=== PATIENT | female | born 2000 | race Caucasian/White ===

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

== ENCOUNTER 2020-03-30 18:03 | Emergency (ER) | payer OTHER ==
[2020-03-30 18:15] VITALS: BP 120/68
--- NOTE | 2020-03-30 21:21 | ER Document Report ---
ED Medical Screen (RME) - General Chief Complaint: Chest Pain Stated Complaint: DIZZINESS Time Seen by Provider: 03/30/20 21:08 TRAVEL OUTSIDE OF THE [place] IN LAST 30 DAYS: No - HPI Notes: 03/30/20 21:15 19-year-old female with a long history of anorexia since age 14 presents to the emergency room by recommendation of her primary care doctor for weakness, lightheadedness, chest pain and slight confusion related to the fact that she will needs about 5200 [address] a day. Patient states that she is relapsing with her anorexia. Patient reports her chest pain started today, reports pain is constant and achy. Has not tried any [id number] medications. Patient states she drinks about 75 ounces of water a day. Denies any fevers or chills. Reports her last menstrual cycle was a week ago. Non-smoker. Her primary care provider, Dr. Gusman, wanted her to get some basic labs and possibly some IV fluids 03/30/20 21:20 I have greeted and performed a rapid initial assessment of this patient. A comprehensive ED assessment and evaluation of the patient, analysis of test results and completion of the medical decision making process will be conducted by additional ED providers. PHYSICAL EXAMINATION: GENERAL: Well-appearing, well-nourished and in no acute distress. pt in wheelchair. HEAD: Atraumatic, normocephalic. EYES: Pupils equal round extraocular movements intact, conjunctiva are normal. NECK: Normal range of motion CV: s1, s2 regular LUNGS: No respiratory distress - Related Data Allergies/Adverse Reactions: morphine Allergy (Verified 10/21/19 21:27) Past Medical History - Social History Family history: None Past Surgical History: Reports: Hx Cholecystectomy - Immunizations Immunizations up to date: Yes Physical Exam - Vital signs Vitals: Temp Pulse Resp BP Pulse Ox 98.6 F 107 H 18 120/68 98 03/30/20 18:13 03/30/20 18:13 03/30/20 18:13 03/30/20 18:13 03/30/20 18:13 Course - Vital Signs Vital signs: Temp Pulse Resp BP Pulse Ox 98.6 F 107 H 18 120/68 98 03/30/20 18:13 03/30/20 18:13 03/30/20 18:13 03/30/20 18:13 03/30/20 18:13
[2020-03-30 22:07] LABS: APPEARANCE,URINE SLIGHTLY-CLOUDY; BILIRUBIN,URINE NEGATIVE (NEGATIVE); COLOR,URINE YELLOW; GLUCOSE, URINE NEGATIVE (NEGATIVE); KETONES,URINE 80 mg/dL (NEGATIVE); LEUKOCYTE ESTERASE,URINE NEGATIVE (NEGATIVE); NITRITE,URINE NEGATIVE (NEGATIVE); PROTEIN,URINE 30 mg/dL (NEGATIVE); URINE SPECIFIC GRAVITY 1.023; UROBILINOGEN,URINE NEGATIVE mg/dL (<2.0)
--- NOTE | 2020-03-30 22:22 | RADIOLOGY REPORT (SQ) ---
CHEST X-RAY 2 view on 03/30/2020 at 9:56 PM CLINICAL INDICATION: Chest pain, dizziness COMPARISON: 11/28/2019 FINDINGS: The lungs are clear. Cardiac, hilar and mediastinal contours are within normal limits. Pulmonary vascularity is within normal limits. No bony abnormality is noted. IMPRESSION: No active disease.
[2020-03-30 22:25] LABS: ABSOLUTE EOSINOPHILS # (AUTO) 0.1 10^3/uL (0.0-0.6); ABSOLUTE LYMPHOCYTES (AUTO) 2.7 10^3/uL (0.5-4.7); ABSOLUTE MONOCYTES (AUTO) 0.5 10^3/uL (0.1-1.4); ABSOLUTE NEUT (AUTO) 6.7 10^3/uL (1.7-8.2); BASOPHILS % (AUTO) 0.4 % (0-2); HEMATOCRIT 41.3 % (36.0-47.0); HEMOGLOBIN 14.1 g/dL (12.0-15.5); LYMPHOCYTES % (AUTO) 26.9 % (13-45); MEAN CORPUSCULAR HEMOGLOBIN 28.6 pg (27.0-33.4); MEAN CORPUSCULAR HGB CONC 34.1 g/dL (32.0-36.0); MEAN CORPUSCULAR VOLUME 84 fl (80-97); MONOCYTES % (AUTO) 5.4 % (3-13); PLATELET COUNT 291 10^3/uL (150-450); RED BLOOD COUNT 4.92 10^6/uL (3.72-5.28); RED CELL DISTRIBUTION WIDTH 12.6 % (11.5-14.0); SEGMENTED NEUTROPHILS % (AUTO) 66.3 % (42-78); TOTAL CELLS COUNTED % (AUTO) 100 %; WHITE BLOOD COUNT 10.1 10^3/uL (4.0-10.5)
[2020-03-30 22:48] LABS: ALBUMIN 5.2 g/dL (3.7-5.6); ALKALINE PHOSPHATASE 102 U/L (50-135); ANION GAP 14 (5-19); ASPARTATE AMINO TRANSFERASE 19 U/L (5-30); BILIRUBIN,TOTAL 0.5 mg/dL (0.2-1.3); BLOOD UREA NITROGEN 8 mg/dL (7-20); CARBON DIOXIDE 19 mmol/L (22-30); CHLORIDE 105 mmol/L (98-107); GLUCOSE 74 mg/dL (75-110); POTASSIUM 4.2 mmol/L (3.6-5.0); TOTAL PROTEIN 8.5 g/dL (6.3-8.2)
--- NOTE | 2020-03-31 00:21 | EKG REPORT ---
SEVERITY:- ABNORMAL ECG - SINUS TACHYCARDIA LEFT ATRIAL ABNORMALITY NONSPECIFIC T ABNORMALITIES, DIFFUSE LEADS : Confirmed by: Jean Angela MD 31-Mar-2020 00:20:53
== END 2020-03-31 00:40 | disposition left against medical advice (07) ==
LOC: ER 18:03
DX: R07.9 Chest pain, unspecified (principal); R42 Dizziness and giddiness; R53.1 Weakness; R41.0 Disorientation, unspecified; Z53.20 Procedure and treatment not carried out because of patient's decision for unspecified reasons
CPT/HCPCS: 36415; 71046; 80053; 81001; 81025; 85025; 93005; 93010; 99281

== ENCOUNTER 2020-04-09 20:40 | Emergency (ER) | payer OTHER ==
--- NOTE | 2020-04-09 21:02 | ER Document Report ---
ED Medical Screen (RME) - General Chief Complaint: Suicidal Ideation Stated Complaint: SUICIDAL IDEATION Time Seen by Provider: 04/09/20 20:51 Mode of Arrival: Ambulatory Information source: Patient Notes: Patient is a 19-year-old female with history of ADHD, major depression and anxiety presenting to the emergency department with complaints of suicidal thoughts with a plan. Patient reports she has been having unstable moods, crying and having outburst for no reason. She also reports that she started cutting herself today. She states she has cut davis to her bilateral arms, hands, legs and abdomen. She does have a history of cutting but states she has not cut for at least 2 years. She has a history of inpatient hospitalization about 5 years ago. She states that she knows if she is left alone she will kill herself. She is accompanied by her her fianc who she lives with. Patient is calm, cooperative, has a very flat affect. IVC petition initiated. I have greeted and performed a rapid initial assessment of this patient. A comprehensive ED assessment and evaluation of the patient, analysis of test results and completion of the medical decision making process will be conducted by additional ED providers. I have specifically instructed the patient or family members with the patient to immediately return to any nursing staff should anything change in the patient's condition or with their chief complaint. TRAVEL OUTSIDE OF THE [place] IN LAST 30 DAYS: No - Related Data Allergies/Adverse Reactions: morphine Allergy (Verified 10/21/19 21:27) Past Medical History - Social History Family history: None Past Surgical History: Reports: Hx Cholecystectomy - Immunizations Immunizations up to date: Yes
--- NOTE | 2020-04-09 21:56 | ER Document Report ---
ED Psych Disorder / Suicide - General Chief Complaint: Psych Problem Stated Complaint: SUICIDAL IDEATION Time Seen by Provider: 04/09/20 20:51 Mode of Arrival: Ambulatory Information source: Patient Notes: Patient is a 19-year-old female with history of ADHD, major depression and anxiety presenting to the emergency department with complaints of suicidal thoughts with a plan. Patient reports she has been having unstable moods, crying and having outburst for no reason. She also reports that she started cutting herself today. She states she has cut davis to her bilateral arms, hands, legs and abdomen. She does have a history of cutting but states she has not cut for at least 2 years. She has a history of inpatient hospitalization about 5 years ago. She states that she knows if she is left alone she will kill herself. She is accompanied by her her fianc who she lives with. Patient is calm, cooperative, has a very flat affect. TRAVEL OUTSIDE OF THE [place] IN LAST 30 DAYS: No - Related Data Allergies/Adverse Reactions: morphine Allergy (Verified 04/09/20 21:05) Home Medications: zoloft, vyvanse, ativan Past Medical History - General Information source: Patient - Social History Smoking Status: Former Smoker Chew tobacco use (# tins/day): No Frequency of alcohol use: Occasional Drug Abuse: Marijuana Family History: Reviewed & Not Pertinent Psychiatric Medical History: Reports: Hx Anxiety, Hx Attention Deficit Hyperactivity Disorder, Hx Depression Past Surgical History: Reports: Hx Cholecystectomy, Hx Oral Surgery - Immunizations Immunizations up to date: Yes Review of Systems - Review of Systems Neurological/Psychological: Depression, Anxiety, Suicidal ideation -: Yes All other systems reviewed and negative Physical Exam - Vital signs Vitals: Temp Pulse BP Pulse Ox 98.4 F 122 H 127/76 H 100 04/09/20 22:16 04/09/20 22:16 04/09/20 22:16 04/09/20 22:16 - Notes Notes: PHYSICAL EXAMINATION: GENERAL: Well-appearing, well-nourished and in no acute distress. HEAD: Atraumatic, normocephalic. EYES: Pupils equal round and reactive to light, extraocular movements intact, conjunctiva are normal. ENT: Nares patent, oropharynx clear without exudates. Moist mucous membranes. NECK: Normal range of motion, supple without lymphadenopathy LUNGS: Breath sounds clear to auscultation bilaterally and equal. No wheezes rales or rhonchi. HEART: Regular rate and rhythm without murmurs ABDOMEN: Soft, nontender, nondistended abdomen. No guarding, no rebound. No masses appreciated. Female : deferred Musculoskeletal: Normal range of motion, no pitting or edema. No cyanosis. NEUROLOGICAL: Cranial nerves grossly intact. Normal speech, normal gait. Normal sensory, motor exams PSYCH: Flat affect, tearful. SKIN: Superficial lacerations to bilateral arms, hands, lower extremities and abdomen. None of which need suturing. Course - Re-evaluation Re-evalutation: 04/09/20 23:40 Patient was placed on IVC petition as soon as she arrived. She has active suicidal thoughts and feels that she needs inpatient psychiatric care. She will be seen by mental health in the morning. - Vital Signs Vital signs: Temp Pulse Resp BP Pulse Ox 98.4 F 122 H 127/76 H 100 04/09/20 22:16 04/09/20 22:16 04/09/20 22:16 04/09/20 22:16 Discharge - Discharge Clinical Impression: Suicidal ideation, Self-mutilation Condition: Stable Disposition: PSYCH HOSP/UNIT
[2020-04-09 22:26] LABS: APPEARANCE,URINE CLEAR; BILIRUBIN,URINE NEGATIVE (NEGATIVE); COLOR,URINE YELLOW; GLUCOSE, URINE NEGATIVE (NEGATIVE); KETONES,URINE NEGATIVE (NEGATIVE); LEUKOCYTE ESTERASE,URINE NEGATIVE (NEGATIVE); NITRITE,URINE NEGATIVE (NEGATIVE); PROTEIN,URINE NEGATIVE (NEGATIVE); URINE SPECIFIC GRAVITY 1.018; UROBILINOGEN,URINE NEGATIVE mg/dL (<2.0)
[2020-04-09 22:40] LABS: URINE AMPHETAMINES SCREEN NEGATIVE; URINE BARBITURATES SCREEN NEGATIVE; URINE BENZODIAZEPINES SCREEN NEGATIVE; URINE COCAINE SCREEN NEGATIVE; URINE MARIJUANA (THC) SCREEN NEGATIVE; URINE METHADONE SCREEN NEGATIVE; URINE PHENCYCLIDINE SCREEN NEGATIVE
[2020-04-09] MEDS ORDERED: LORAZEPAM 1 MG TABLET PO ONE (23:46)
[2020-04-09 23:47] LABS: ABSOLUTE BASOPHILS # (AUTO) 0.1 10^3/uL (0.0-0.2); ABSOLUTE EOSINOPHILS # (AUTO) 0.1 10^3/uL (0.0-0.6); ABSOLUTE MONOCYTES (AUTO) 0.7 10^3/uL (0.1-1.4); ABSOLUTE NEUT (AUTO) 7.7 10^3/uL (1.7-8.2); BASOPHILS % (AUTO) 0.7 % (0-2); EOSINOPHILS % (AUTO) 1.1 % (0-6); HEMATOCRIT 37.1 % (36.0-47.0); HEMOGLOBIN 13.1 g/dL (12.0-15.5); LYMPHOCYTES % (AUTO) 25.9 % (13-45); MEAN CORPUSCULAR HEMOGLOBIN 29.5 pg (27.0-33.4); MEAN CORPUSCULAR HGB CONC 35.5 g/dL (32.0-36.0); MEAN CORPUSCULAR VOLUME 83 fl (80-97); MONOCYTES % (AUTO) 5.7 % (3-13); PLATELET COUNT 230 10^3/uL (150-450); RED BLOOD COUNT 4.46 10^6/uL (3.72-5.28); SEGMENTED NEUTROPHILS % (AUTO) 66.6 % (42-78); TOTAL CELLS COUNTED % (AUTO) 100 %; WHITE BLOOD COUNT 11.7 10^3/uL (4.0-10.5)
[2020-04-10 00:11] LABS: ACETAMINOPHEN < 10 ug/mL (10-30); ALBUMIN 4.3 g/dL (3.7-5.6); ALCOHOL < 10 mg/dL (NONE DETECTED); ALKALINE PHOSPHATASE 70 U/L (50-135); ANION GAP 11 (5-19); ASPARTATE AMINO TRANSFERASE 20 U/L (5-30); BILIRUBIN,TOTAL 0.2 mg/dL (0.2-1.3); BLOOD UREA NITROGEN 8 mg/dL (7-20); CALCIUM 9.2 mg/dL (8.4-10.2); CARBON DIOXIDE 23 mmol/L (22-30); CHLORIDE 109 mmol/L (98-107); GLUCOSE 103 mg/dL (75-110); POTASSIUM 3.9 mmol/L (3.6-5.0); SALICYLATE < 1.0 mg/dL (2.0-20.0); TOTAL PROTEIN 7.2 g/dL (6.3-8.2)
--- NOTE | 2020-04-10 09:36 | EKG REPORT ---
SEVERITY:- OTHERWISE NORMAL ECG - SINUS TACHYCARDIA NONSPECIFIC ST-T CHANGES : Confirmed by: Chandana Lambert 10-Apr-2020 09:36:28
[2020-04-10] MEDS ORDERED: OLANZAPINE 2.5 MG TABLET PO ONE (15:02)
[2020-04-10] MEDS: FLUOXETINE HCL 20 MG CAPSULE PO SCH (15:10)
--- NOTE | 2020-04-10 16:10 | PSYCHOLOGICAL NOTE ---
Psych Note - Psych Note Date seen by psych provider: 04/10/20 Time seen by psych provider: 11:40 Psych Note: Reason for Consult: Suicidal ideation Consent permissions: Ernesto Benites ([phone]) Patient comes to ed from home via pov brought by live-in ernesto for suicidal ideation with plan and self harm. Patient states she has been having breakdowns that have intensified over the past 3 days. no identifiable triggers. +stress increase breakdowns described as "uncontrollable crying, pulling my hair, cutting, saying things I don't mean and become aggressive to myself." Medication recommendations per [facility]'s contracted psychiatrist Dr Marissa AMEZCUA are as follows Zyprexa 2.5mg twice daily Prozac 20mg daily Impression/Plan: Patient is under 24 hour petition for evaluation. Medication recommendations have been provided. Evaluation is on going. Dr. Vegas was consulted on the care and management of this patient; attending physician is in agreement with recommendations and disposition.
[2020-04-10] MEDS ORDERED: OLANZAPINE 2.5 MG TABLET PO SCH (18:00)
[2020-04-10] MEDS: OLANZAPINE 2.5 MG TABLET PO SCH (23:05)
[2020-04-11] MEDS: FLUOXETINE HCL 20 MG CAPSULE PO SCH (10:49)
[2020-04-11] MEDS: OLANZAPINE 2.5 MG TABLET PO SCH (10:50)
[2020-04-11 18:06] VITALS: BP 128/64
--- NOTE | 2020-04-12 17:14 | PSYCHOLOGICAL NOTE ---
Psych Note - Psych Note Date seen by psych provider: 04/11/20 Time seen by psych provider: 11:45 - Re evaluation with patient from [phone]. Spoke with about plan of care at 1647 and then when he was present for transportation. Psych Note: Patient is a 19 year old female who is on the Emergency Department on a 24 Hour Petition for Evaluation due to suicidal ideation with plan to overdose, self injurious behavior (took a razor blade to arms, upper legs, upper chest, abdomen), being dysphoric and tearful, and having what she reported has intermittent behaviors/breakdowns since childhood. Patient reported she was "doing good, better than yesterday" when asked how she was doing today. She identified "I was on Prozac before and it never worked for me." She was psychoeducated that the Prozac and Zyprexa work together. Once an explanation was provided she stated she would try it then. She denied having mental health linkage and reported Primary Care Physician being Dr. Monk. Patient stated she needs recommendation for outpatient mental health treatment and commented her insurance is out of network but they want her to go. She denied current suicidal and homicidal ideation. Patient stated I don't know" when asked what triggers her. She further stated "I sunil just forget after." She admitted to previous mental health hospitalization at a week duration when she was age 14. Patient reported she was diagnosed with Borderline Personality Disorder, Major Depression, and Anxiety. She asked if she would get a diagnosis from the ED and was informed it would be general and related to her presentation but as she sees a provider ongoing and they get to know her diagnoses may change. Patient was alert and oriented to self, person, place, time and situation. Mood was euthymic with congruent affect. She denied current suicidal and homicidal ideation. Patient did not appear to be responding to internal stimuli as evidenced by fair eye contact and answering questions appropriately when addressed. Thought processes were linear and organized. Conversational speech was within normal limits for rate, tone and prosody. Intellectual abilities are estimated to be average. Insight, judgment and impulse control were fair as evidenced by asking questions about diagnosis from ED and wanting linkage to outpatient mental health services. At 1533 called patient's fiance Ajay Benites ([phone]). No answer. He returned call at 1647 and was made aware of plan of care to discharge. He stated he was at work but would pick patient up as soon as he was done. Once he arrived to pick patient up he and patient were informed by this clinician he needed to be in charge of all medications and administration which he agreed to. Patient also said she understood it was safety and not trying to treat her like a child. At 1657 called [facility]. Spoke to Priya. Made new patient referral for medication management and therapy. Provided basic demographics and crisis. [facility] to call patient to arrange appointments. Clinical Presentation: Suicidal ideation Self injurious behavior with history going back 2 years ago History of Borderline Personality, Depression and Anxiety per patient Impression/Plan: Patient is cleared from acute psychiatric services. Recommendation to RESCIND 24 Hour Petition for Evaluation. Patient denied current suicidal ideation. Medications started to help manage symptoms. Fiance to be in control of all medications and administration. Linked patient to outpatient mental health services with [facility]. Provided patient and with the outpatient mental health resource sheet which documented [facility] calling patient to arrange appointments, highlighted both mobile crisis numbers, and listed walk in times for both [facility] and [facility] if something falls through with [facility]. Consulted with Dr. Vegas regarding the management and care of patient. ED Physician in agreement with recommendations.
== END 2020-04-11 18:26 | disposition home or self-care (01) ==
LOC: ER 20:40
DX: R45.851 Suicidal ideations (principal); S41.112A Laceration without foreign body of left upper arm, initial encounter; S41.111A Laceration without foreign body of right upper arm, initial encounter; S61.412A Laceration without foreign body of left hand, initial encounter; S61.411A Laceration without foreign body of right hand, initial encounter; S81.812A Laceration without foreign body, left lower leg, initial encounter; S81.811A Laceration without foreign body, right lower leg, initial encounter; X78.8XXA Intentional self-harm by other sharp object, initial encounter; F90.9 Attention-deficit hyperactivity disorder, unspecified type; F32.9 Major depressive disorder, single episode, unspecified; F41.9 Anxiety disorder, unspecified; Z79.899 Other long term (current) drug therapy
CPT/HCPCS: 93005; 99285; 36415; 80307 ×4; 84703; 85025; 80053; 81001; 93010; J3490 ×2

== ENCOUNTER 2020-05-02 10:04 | Emergency (ER) | payer OTHER ==
[2020-05-02 11:26] LABS: APPEARANCE,URINE SLIGHTLY-CLOUDY; BILIRUBIN,URINE NEGATIVE (NEGATIVE); COLOR,URINE YELLOW; GLUCOSE, URINE NEGATIVE (NEGATIVE); KETONES,URINE NEGATIVE (NEGATIVE); PROTEIN,URINE NEGATIVE (NEGATIVE); UROBILINOGEN,URINE NEGATIVE mg/dL (<2.0)
[2020-05-02] MEDS ORDERED: ACETAMINOPHEN 325 MG TABLET PO ONE (11:37)
--- NOTE | 2020-05-02 11:38 | ER Document Report ---
ED GI/ - General Chief Complaint: Abdominal Pain Stated Complaint: ABDOMINAL PAIN 5WKS PREG Time Seen by Provider: 05/02/20 11:29 Primary Care Provider: [facility] [Provider Group] - Follow up tomorrow Mode of Arrival: Ambulatory Information source: Patient Notes: Patient presents complaining of lower pelvic pain that started yesterday. Patient denies any vaginal bleeding or discharge. Patient denies any concerns about STI. Patient states she is currently 5 weeks G1, P0. Patient does complain of some nausea. Patient denies any urinary symptoms. TRAVEL OUTSIDE OF THE [place] IN LAST 30 DAYS: No - HPI Patient complains to provider of: Pelvic pain, Onset: Yesterday Timing/Duration: Gradual Quality of pain: Achy Pain Level: 1 Location: Pelvis Menstrual period history: Sexual history: Active Associated symptoms: Nausea. denies: Dysuria, Fever, Urinary hesitancy, Urinary frequency, Urinary retention, Urinary urgency, Vaginal discharge, Vomiting Exacerbated by: Denies Relieved by: Denies Similar symptoms previously: No Recently seen / treated by doctor: No - Related Data Allergies/Adverse Reactions: peanut Allergy (Severe, Verified 04/10/20 01:04) morphine Allergy (Verified 04/09/20 21:05) Past Medical History - General Information source: Patient - Social History Smoking Status: Never Smoker Frequency of alcohol use: None Drug Abuse: None Occupation: None Lives with: Family Family History: Reviewed & Not Pertinent Neurological Medical History: Reports: Hx Migraine Psychiatric Medical History: Reports: Hx Anxiety, Hx Attention Deficit Hyperactivity Disorder, Hx Depression Past Surgical History: Reports: Hx Cholecystectomy, Hx Oral Surgery - Immunizations Immunizations up to date: Yes Review of Systems - Review of Systems Constitutional: No symptoms reported. denies: Fever EENT: No symptoms reported Cardiovascular: No symptoms reported Respiratory: No symptoms reported. denies: Cough, Short of breath Gastrointestinal: Abdominal pain, Nausea. denies: Diarrhea, Vomiting Genitourinary: No symptoms reported. denies: Dysuria, Flank pain Female Genitourinary: . denies: Vaginal discharge, Vaginal bleeding Musculoskeletal: No symptoms reported Skin: No symptoms reported Hematologic/Lymphatic: No symptoms reported Neurological/Psychological: No symptoms reported Physical Exam - Vital signs Vitals: Temp Pulse Resp BP Pulse Ox 98.9 F 99 H 18 127/70 H 97 05/02/20 10:08 05/02/20 10:08 05/02/20 10:08 05/02/20 10:08 05/02/20 10:08 - Notes Notes: PHYSICAL EXAMINATION: GENERAL: Well-appearing and in no acute distress. HEAD: Atraumatic, normocephalic. EYES: sclera anicteric, conjunctiva are normal. ENT: nares patent. Moist mucous membranes. NECK: Normal range of motion, supple without lymphadenopathy LUNGS: CTAB and equal. No wheezes rales or rhonchi. HEART: Regular rate and rhythm without murmurs ABDOMEN: Soft, suprapubic tenderness, normal bowel sounds, no guarding. EXTREMITIES: Normal range of motion, no pitting edema. No cyanosis. BACK: bilateral CVA tenderness NEUROLOGICAL: Cranial nerves grossly intact. Normal speech. PSYCH: Normal mood, normal affect. SKIN: Warm, Dry, normal turgor, no rashes or lesions noted Course - Re-evaluation Re-evalutation: 05/02/20 13:37 Patient with mild lower pelvic tenderness and nausea. Patient with gestational sac noted on ultrasound without pole or heart tones, discussed with patient need for follow-up for repeat hCG testing as well as repeat ultrasound to further evaluate her status. Discussed with patient possibility of blighted ovum as well as normal early . Patient states she has an appointment later this month although plans to call tomorrow to make an appointment for sooner follow-up. Discussed worsening symptoms that patient should return immediately for. Patient verbalized understanding and is agreeable with plan of care. - Vital Signs Vital signs: Temp Pulse Resp BP Pulse Ox 98.3 F 89 18 114/59 L 100 05/02/20 14:05 05/02/20 14:05 05/02/20 14:05 05/02/20 14:05 05/02/20 14:05 - Laboratory Result Diagrams: 05/02/20 11:35 05/02/20 11:35 Laboratory results interpreted by me: 05/02/20 05/02/20 05/02/20 11:10 11:10 11:35 WBC 12.4 H Absolute Neuts (auto) 8.8 H Creatinine ALT Beta HCG, Quant Urine Ascorbic Acid 40 H Urine HCG, Qual POSITIVE H 05/02/20 11:35 WBC Absolute Neuts (auto) Creatinine 0.43 L ALT 36 H Beta HCG, Quant 4396.90 H Urine Ascorbic Acid Urine HCG, Qual 05/02/20 13:37 Labs- All tests 24 hr 05/02/20 05/02/20 05/02/20 11:10 11:10 11:35 WBC 12.4 H RBC 4.56 Hgb 13.0 Hct 37.8 MCV 83 MCH 28.4 MCHC 34.3 RDW 13.0 Plt Count 274 Lymph % (Auto) 21.6 Morrison % (Auto) 5.6 Eos % (Auto) 1.1 Baso % (Auto) 0.4 Absolute Neuts (auto) 8.8 H Absolute Lymphs (auto) 2.7 Absolute Monos (auto) 0.7 Absolute Eos (auto) 0.1 Absolute Basos (auto) 0.0 Seg Neutrophils % 71.3 Sodium Potassium Chloride Carbon Dioxide Anion Gap BUN Creatinine Est GFR ( Amer) Est GFR (MDRD) Non-Af Glucose Calcium Total Bilirubin Direct Bilirubin Neonat Total Bilirubin Neonat Direct Bilirubin Neonat Indirect Bili AST ALT Alkaline Phosphatase Total Protein Albumin Lipase Beta HCG, Quant Total Beta HCG Urine Color YELLOW Urine Appearance SLIGHTLY-CLOUDY Urine pH 5.0 Ur Specific Wilton 1.020 Urine Protein NEGATIVE Urine Glucose (UA) NEGATIVE Urine Ketones NEGATIVE Urine Blood NEGATIVE Urine Nitrite (Reflex) NEGATIVE Urine Bilirubin NEGATIVE Urine Urobilinogen NEGATIVE Leukocyte Esterase Rfl NEGATIVE Urine RBC (Auto) 0 Urine WBC (Reflex) 1 Squamous Epi Cells Auto 3 Urine Mucus (Auto) FEW Urine Ascorbic Acid 40 H Urine HCG, Qual POSITIVE H 05/02/20 11:35 WBC RBC Hgb Hct MCV MCH MCHC RDW Plt Count Lymph % (Auto) Morrison % (Auto) Eos % (Auto) Baso % (Auto) Absolute Neuts (auto) Absolute Lymphs (auto) Absolute Monos (auto) Absolute Eos (auto) Absolute Basos (auto) Seg Neutrophils % Sodium 137.9 Potassium 4.2 Chloride 105 Carbon Dioxide 22 Anion Gap 11 BUN 9 Creatinine 0.43 L Est GFR ( Amer) > 60 Est GFR (MDRD) Non-Af > 60 Glucose 93 Calcium 9.7 Total Bilirubin 0.4 Direct Bilirubin 0.1 Neonat Total Bilirubin Not Reportable Neonat Direct Bilirubin Not Reportable Neonat Indirect Bili Not Reportable AST 22 ALT 36 H Alkaline Phosphatase 70 Total Protein 7.2 Albumin 4.4 Lipase 60.3 Beta HCG, Quant 4396.90 H Total Beta HCG POSITIVE Urine Color Urine Appearance Urine pH Ur Specific Wilton Urine Protein Urine Glucose (UA) Urine Ketones Urine Blood Urine Nitrite (Reflex) Urine Bilirubin Urine Urobilinogen Leukocyte Esterase Rfl Urine RBC (Auto) Urine WBC (Reflex) Squamous Epi Cells Auto Urine Mucus (Auto) Urine Ascorbic Acid Urine HCG, Qual - Diagnostic Test Radiology reviewed: Reports reviewed Discharge - Discharge Clinical Impression: Pelvic pain, test positive Condition: Stable Disposition: HOME, SELF-CARE Instructions: Pelvic Pain in ([facility]) Additional Instructions: Return immediately for any new or worsening symptoms: Fever, worsening or persistent pain, vaginal bleeding, or any concerning new symptoms Followup with your primary care provider, call tomorrow to make a followup appointment Follow-up with your [employer] provider for further evaluation. You will need to have repeat blood work as well as a repeat ultrasound to further evaluate your as no pole was not noted on ultrasound. Referrals: [facility] [Provider Group] - Follow up tomorrow
[2020-05-02 11:49] LABS: ABSOLUTE EOSINOPHILS # (AUTO) 0.1 10^3/uL (0.0-0.6); ABSOLUTE LYMPHOCYTES (AUTO) 2.7 10^3/uL (0.5-4.7); ABSOLUTE MONOCYTES (AUTO) 0.7 10^3/uL (0.1-1.4); ABSOLUTE NEUT (AUTO) 8.8 10^3/uL (1.7-8.2); BASOPHILS % (AUTO) 0.4 % (0-2); EOSINOPHILS % (AUTO) 1.1 % (0-6); HEMATOCRIT 37.8 % (36.0-47.0); LYMPHOCYTES % (AUTO) 21.6 % (13-45); MEAN CORPUSCULAR HEMOGLOBIN 28.4 pg (27.0-33.4); MEAN CORPUSCULAR HGB CONC 34.3 g/dL (32.0-36.0); MEAN CORPUSCULAR VOLUME 83 fl (80-97); MONOCYTES % (AUTO) 5.6 % (3-13); PLATELET COUNT 274 10^3/uL (150-450); RED BLOOD COUNT 4.56 10^6/uL (3.72-5.28); SEGMENTED NEUTROPHILS % (AUTO) 71.3 % (42-78); TOTAL CELLS COUNTED % (AUTO) 100 %; WHITE BLOOD COUNT 12.4 10^3/uL (4.0-10.5)
[2020-05-02 12:10] LABS: ALBUMIN 4.4 g/dL (3.7-5.6); ALKALINE PHOSPHATASE 70 U/L (50-135); ANION GAP 11 (5-19); ASPARTATE AMINO TRANSFERASE 22 U/L (5-30); BILIRUBIN,DIRECT 0.1 mg/dL (0.0-0.4); BILIRUBIN,TOTAL 0.4 mg/dL (0.2-1.3); BLOOD UREA NITROGEN 9 mg/dL (7-20); CALCIUM 9.7 mg/dL (8.4-10.2); CARBON DIOXIDE 22 mmol/L (22-30); CHLORIDE 105 mmol/L (98-107); GLUCOSE 93 mg/dL (75-110); POTASSIUM 4.2 mmol/L (3.6-5.0); TOTAL PROTEIN 7.2 g/dL (6.3-8.2)
--- NOTE | 2020-05-02 13:03 | RADIOLOGY REPORT (SQ) ---
EXAM DESCRIPTION: U/S OB TRANSVAGINAL W/O DOP IMAGES COMPLETED DATE/TIME: 05/02/2020 12:40 pm REASON FOR STUDY: pelvic pain COMPARISON: None. TECHNIQUE: Transvaginal static and realtime grayscale images acquired of the pelvis. Additional melina cted spectral and color Doppler images recorded. All images stored on PACs. bHCG: Not available. CLINICAL DATES: LMP 03/24/2020. EGA based on LMP 5 weeks 4 days. GOPI based on LMP 12/29/2020. LIMITATIONS: None. FINDINGS: FETUS: Single Living intrauterine . ULTRASOUND EGA: 5 weeks 3 days based on mean sac diameter of 6.6 mm. ULTRASOUND GOPI: 12/30/2020. CRL: N/A. SURVEY: Too early to assess. AMNIOTIC FLUID: Too early to assess. PLACENTA: Too early to assess. SUBCHORIONIC BLEED: No. UTERUS: The uterus measures 8 x 5.1 x 3.8 cm. There is an intrauterine gestational sac that contains a yolk sac; there is no visible embryo. CERVICAL LENGTH: 2.9 cm. Closed. RIGHT ADNEXA: The right ovary measures 3.3 x 2.9 x 2.2 cm and on Doppler there is intact color flow w ithin the ovarian stroma. There is a heterogeneous cyst in the ovary that measures 1.3 x 1.2 x 0.9 c m. LEFT ADNEXA: The left ovary measures 3.5 x 2.2 x 1.3 cm and on Doppler there is intact color flow wit hin the ovarian stroma. There is no adnexal mass. FREE FLUID: None. OTHER: No other finding. IMPRESSION: Intrauterine gestational sac that contains a yolk sac but no pole. The findings l ikely represent an early intrauterine . Consider correlation with serial beta HCGs and/or f ollow-up ultrasound to establish the viability of the gestation. TECHNICAL DOCUMENTATION: JOB ID: [id number] 2010 [employer]- All Rights Reserved Reading location - IP/workstation name: [email or web address]
[2020-05-02 14:07] VITALS: BP 114/59
[2020-05-02 15:40] LABS: CHLAM PCR NOT DETECTED (NOT DETECT)
== END 2020-05-02 14:07 | disposition home or self-care (01) ==
LOC: ER 10:04
DX: O26.891 Other specified pregnancy related conditions, first trimester (principal); R10.9 Unspecified abdominal pain; R10.2 Pelvic and perineal pain; R11.0 Nausea; Z3A.01 Less than 8 weeks gestation of pregnancy; Z88.8 Allergy status to other drugs, medicaments and biological substances
CPT/HCPCS: 36415; 76817; 80053; 81001; 81025; 83690; 84702; 85025; 87491; 87591; 99284

== ENCOUNTER 2020-06-03 14:57 | Emergency (ER) | payer OTHER ==
[2020-06-03] MEDS ORDERED: METOCLOPRAMIDE HCL INJ/PF 10 MG/2 ML SDV IV ONE (15:39)
[2020-06-03] MEDS ORDERED: RINGERS SOLUTION,LACTATED 1,000 ML IV ONE (15:39)
--- NOTE | 2020-06-03 15:41 | ER Document Report ---
ED Medical Screen (RME) - General Chief Complaint: Dizziness Stated Complaint: WEAKNESS Time Seen by Provider: 06/03/20 15:34 Mode of Arrival: Ambulatory Information source: Patient Notes: HPI; 20-year-old female who states that approximately 10 weeks who presents emergency room complaining of general fatigue and weakness that started earlier today. Complains of nausea but no vomiting. Denies any vaginal bleeding or discharge. Complains of urinary pressure when she urinates but denies dysuria. States her OB care is up-to-date with women's health care. She is a 1. She denies any recent travel. No COVID-19 exposure. PE: Alert and oriented x3. Lungs: Clear to auscultation without rales, rhonchi, wheezes. Heart: Tachycardic without murmurs, rubs, gallops. I have greeted and performed a rapid initial assessment of this patient. A comprehensive ED assessment and evaluation of the patient, analysis of test results and completion of the medical decision making process will be conducted by additional ED providers. I have specifically instructed the patient or family members with the patient to immediately return to any nursing staff should anything change in the patient's condition or with their chief complaint. TRAVEL OUTSIDE OF THE [place] IN LAST 30 DAYS: No - Related Data Allergies/Adverse Reactions: peanut Allergy (Severe, Verified 06/03/20 15:32) morphine Allergy (Verified 06/03/20 15:32) Past Medical History - Social History Family history: None Neurological Medical History: Reports: Hx Migraine Psychiatric Medical History: Reports: Hx Anxiety, Hx Attention Deficit Hyperactivity Disorder, Hx Depression Past Surgical History: Reports: Hx Cholecystectomy, Hx Oral Surgery - Immunizations Immunizations up to date: Yes Physical Exam - Vital signs Vitals: Temp Pulse Resp BP Pulse Ox 98.7 F 108 H 20 119/78 100 06/03/20 15:04 06/03/20 15:04 06/03/20 15:04 06/03/20 15:04 06/03/20 15:04 Course - Vital Signs Vital signs: Temp Pulse Resp BP Pulse Ox 98.7 F 108 H 20 119/78 100 06/03/20 15:04 06/03/20 15:04 06/03/20 15:04 06/03/20 15:04 06/03/20 15:04
[2020-06-03 16:27] LABS: APPEARANCE,URINE CLOUDY; BILIRUBIN,URINE NEGATIVE (NEGATIVE); COLOR,URINE AMBER; GLUCOSE, URINE NEGATIVE (NEGATIVE); KETONES,URINE NEGATIVE (NEGATIVE); LEUKOCYTE ESTERASE,URINE NEGATIVE (NEGATIVE); NITRITE,URINE NEGATIVE (NEGATIVE); PROTEIN,URINE NEGATIVE (NEGATIVE); URINE SPECIFIC GRAVITY 1.025; UROBILINOGEN,URINE NEGATIVE mg/dL (<2.0)
[2020-06-03 17:23] LABS: ABSOLUTE EOSINOPHILS # (AUTO) 0.1 10^3/uL (0.0-0.6); ABSOLUTE LYMPHOCYTES (AUTO) 2.9 10^3/uL (0.5-4.7); ABSOLUTE NEUT (AUTO) 14.1 10^3/uL (1.7-8.2); BASOPHILS % (AUTO) 0.2 % (0-2); EOSINOPHILS % (AUTO) 0.6 % (0-6); HEMATOCRIT 38.5 % (36.0-47.0); HEMOGLOBIN 13.6 g/dL (12.0-15.5); LYMPHOCYTES % (AUTO) 15.9 % (13-45); MEAN CORPUSCULAR HEMOGLOBIN 28.7 pg (27.0-33.4); MEAN CORPUSCULAR HGB CONC 35.4 g/dL (32.0-36.0); MEAN CORPUSCULAR VOLUME 81 fl (80-97); MONOCYTES % (AUTO) 5.5 % (3-13); PLATELET COUNT 299 10^3/uL (150-450); RED BLOOD COUNT 4.74 10^6/uL (3.72-5.28); RED CELL DISTRIBUTION WIDTH 13.2 % (11.5-14.0); SEGMENTED NEUTROPHILS % (AUTO) 77.8 % (42-78); TOTAL CELLS COUNTED % (AUTO) 100 %; WHITE BLOOD COUNT 18.2 10^3/uL (4.0-10.5)
[2020-06-03 17:30] LABS: ALBUMIN 5.1 g/dL (3.5-5.0); ALKALINE PHOSPHATASE 80 U/L (38-126); ANION GAP 18 (5-19); ASPARTATE AMINO TRANSFERASE 17 U/L (14-36); BILIRUBIN,DIRECT 0.2 mg/dL (0.0-0.4); BILIRUBIN,TOTAL 0.3 mg/dL (0.2-1.3); BLOOD UREA NITROGEN 9 mg/dL (7-20); CALCIUM 10.5 mg/dL (8.4-10.2); CARBON DIOXIDE 18 mmol/L (22-30); CHLORIDE 102 mmol/L (98-107); GLUCOSE 86 mg/dL (75-110); POTASSIUM 4.1 mmol/L (3.6-5.0); TOTAL PROTEIN 8.7 g/dL (6.3-8.2)
[2020-06-03] MEDS ORDERED: METOCLOPRAMIDE HCL INJ/PF 10 MG/2 ML SDV ONE (18:00)
--- NOTE | 2020-06-03 20:20 | ER Document Report ---
ED General - General Chief Complaint: Dizziness Stated Complaint: WEAKNESS Time Seen by Provider: 06/03/20 15:34 Mode of Arrival: Ambulatory Notes: Patient is a 20-year-old white female who is G1, P0 at approximately 10 weeks gestation who presents to the emergency department the chief complaint of dizziness generalized weakness that began this morning around 10 AM. She states she was riding in a car. She reports she had [employer] for breakfast. She states she has been eating approximately 3 meals per day. She states around 10 AM she started to feel a little shaky. She states she got somewhat dizzy which she describes as things around her feeling shaky and moving as if she was on a boat. She reports feeling generally weak. She states that her symptoms have passed and she feels mostly fine at this time just a little fatigue. She states that she is hungry and wishes to eat. She states that she has been well hydrated. She is had care with normal ultrasounds. She denies any vaginal bleeding or discharge. No urinary complaints per my history. She denies any fever or rash. No recent travel or known sick contacts. TRAVEL OUTSIDE OF THE [place] IN LAST 30 DAYS: No - Related Data Allergies/Adverse Reactions: peanut Allergy (Severe, Verified 06/03/20 15:32) morphine Allergy (Verified 06/03/20 15:32) Past Medical History - General Information source: Patient - Social History Smoking Status: Never Smoker Family History: Reviewed & Not Pertinent Neurological Medical History: Reports: Hx Migraine Psychiatric Medical History: Reports: Hx Anxiety, Hx Attention Deficit Hyperactivity Disorder, Hx Depression Past Surgical History: Reports: Hx Cholecystectomy, Hx Oral Surgery - Immunizations Immunizations up to date: Yes Review of Systems - Review of Systems Constitutional: denies: Fever EENT: denies: Eye pain Cardiovascular: denies: Dyspnea Respiratory: denies: Sputum Gastrointestinal: denies: Constipation Genitourinary: denies: Flank pain Female Genitourinary: denies: Heavy/abnormal periods Musculoskeletal: denies: Muscle stiffness Skin: denies: Dryness Hematologic/Lymphatic: denies: Easy bruising Neurological/Psychological: Weakness Physical Exam - Vital signs Vitals: Temp Pulse Resp BP Pulse Ox 98.7 F 108 H 20 119/78 100 06/03/20 15:04 06/03/20 15:04 06/03/20 15:04 06/03/20 15:04 06/03/20 15:04 - General General appearance: Appears well, Alert In distress: None - HEENT Head: Normocephalic, Atraumatic Eyes: Normal Conjunctiva: Normal Extraocular movements intact: Yes Eyelashes: Normal Pupils: PERRL Ears: Normal External canal: Normal Tympanic membrane: Normal Nasal: Normal Mouth/Lips: Normal Mucous membranes: Normal Pharynx: Normal Neck: Normal, Supple - Respiratory Respiratory status: No respiratory distress Chest status: Nontender Breath sounds: Normal Chest palpation: Normal - Cardiovascular Rhythm: Regular Heart sounds: Normal auscultation - Neurological Neuro grossly intact: Yes Cognition: Normal Orientation: AAOx4 Richard Coma Scale Eye Opening: Spontaneous Oxford Coma Scale Verbal: Oriented Richard Coma Scale Motor: Obeys Commands Richard Coma Scale Total: 15 Speech: Normal Cranial nerves: Normal Cerebellar coordination: Normal 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 We discussed to continue with appropriate adequate hydration and recommended change to smaller more frequent meals as opposed to 3 rounded meals per day. Discussed normal changes in . She will follow-up with her [facility] as scheduled and discussed. Lab work unremarkable. No bleeding or discharge or abdominal pain. She stable and appropriate for discharge and outpatient follow-up. Counseled her and her significant other at length regarding the importance of outpatient follow-up and advised to return here or any ER immediately with any new, persistent or worsening symptoms. They verbalized understood and agreed. - Vital Signs Vital signs: Temp Pulse Resp BP Pulse Ox 98.7 F 108 H 20 119/78 100 06/03/20 15:04 06/03/20 15:04 06/03/20 15:04 06/03/20 15:04 06/03/20 15:04 - Laboratory Result Diagrams: 06/03/20 16:47 06/03/20 16:47 Laboratory results interpreted by me: 06/03/20 06/03/20 06/03/20 15:50 16:47 16:47 WBC 18.2 H Absolute Neuts (auto) 14.1 H Carbon Dioxide 18 L Creatinine 0.40 L Calcium 10.5 H Total Protein 8.7 H Albumin 5.1 H Beta HCG, Quant [id number] H Urine Ascorbic Acid 40 H Discharge - Discharge Clinical Impression: Generalized weakness Qualifiers: Weeks of gestation: unspecified Qualified Code(s): Z34.90 - Encounter for supervision of normal , unspecified, unspecified trimester Condition: Stable Disposition: HOME, SELF-CARE Instructions: ([facility]) Additional Instructions: Follow-up with your OB doctor as scheduled and discussed. Please return here or any ER immediately with any new, persistent or worsening symptoms.
[2020-06-03 20:42] VITALS: BP 121/66
== END 2020-06-03 20:40 | disposition home or self-care (01) ==
LOC: ER 14:57
DX: O26.899 Other specified pregnancy related conditions, unspecified trimester (principal); R53.1 Weakness; R42 Dizziness and giddiness; O26.819 Pregnancy related exhaustion and fatigue, unspecified trimester; Z3A.00 Weeks of gestation of pregnancy not specified; Z91.010 Allergy to peanuts; Z88.6 Allergy status to analgesic agent; Z88.5 Allergy status to narcotic agent
CPT/HCPCS: 99282; 96361; 96374; 36415; 84702; 85025; 80053; 81001; J2765; J7120